=== PATIENT | male | born 1975 | race Caucasian/White ===

== ENCOUNTER 2018-04-20 08:48 | Emergency (ER) | payer BC ==
[~2018-04-20] VITALS: Ht 193 cm; Wt 106.6 kg
--- NOTE | 2018-04-20 08:52 | NUR ---
PT A/OX4, BIB [facility] C/C SYNCOPAL EPISODE. PER PARAMEDICS, PT EXPERIENCED SYNCOPAL EPISODE X2 AT THE [facility] OFFICE WHILE IN SITTING POSITION AND X1 IN THE RA, EACH EPISODE LASTED "A FEW SECONDS". VSS. PT IS A/OX4, DENIES ANY COMPLAINTS AT THIS TIME. PT DOES NOT APPEAR TO BE IN ANY APPARENT DISTRESS. 18G IV ACCESS IN L HAND IS ESTABLISHED BY [facility] CNC CUTTING OPERATOR. ER MD AT BEDSIDE FOR MSE.
[2018-04-20] MEDS ORDERED: IV NORMAL SALINE 1000 ML BAG IV ONE (09:15)
[2018-04-20 09:40] LABS: BASOPHILS % (AUTO) 0.6 % (0.0-2.0); EOSINOPHILS # (AUTO) 0.1 K/uL (0.0-0.7); EOSINOPHILS % (AUTO) 1.3 % (0.0-7.0); HEMOGLOBIN 13.6 g/dL (12.5-16.3); LYMPHOCYTES # (AUTO) 2.7 K/uL (20.0-40.0); LYMPHOCYTES % (AUTO) 43.9 % (20.5-51.5); MEAN CORPUSCULAR HEMOGLOBIN 33.6 uug (23.8-33.4); MEAN CORPUSCULAR HGB CONC 35 g/dL (32.5-36.3); MEAN CORPUSCULAR VOLUME 96.7 fL (73.0-96.2); MONOCYTES # (AUTO) 0.5 K/uL (2.0-10.0); NEUTROPHILS # (AUTO) 2.7 K/uL (1.8-8.9); NEUTROPHILS % (AUTO) 45.2 % (38.5-71.5); PLATELET COUNT (AUTO) 201 K/uL (152-348); RED BLOOD CELL COUNT(AUTO) 4.03 MIL/uL (4.06-5.63)
[2018-04-20 09:47] LABS: POTASSIUM 4.2 mmol/L (3.5-5.1)
[2018-04-20 09:53] LABS: BILIRUBIN,DIRECT 0.1 mg/dL (0.0-0.2); BILIRUBIN,TOTAL 0.5 mg/dL (0.2-1.0); TOTAL PROTEIN, SERUM 6.7 g/dL (6.4-8.2)
[2018-04-20 10:12] VITALS: BP 122/76
--- NOTE | 2018-04-20 10:12 | NUR ---
Patient discharged to home in stable conditon. Written and verbal after care instructions given. Patient verbalizes understanding of instructions. ALL BELONGINGS W/ PT. PT SELF-AMBULATED W/O DIFFICULTY. 18G IV ACCESS IN L WRIST AND 20G IN R FOREARM REMOVED PRIOR TO D/C - INNER CANNULAS INTACT.
== END 2018-04-20 10:10 | disposition home or self-care (01) ==
LOC: ER 08:48
DX: R55 Syncope and collapse (principal); F45.9 Somatoform disorder, unspecified
CPT/HCPCS: 36415; 70030-TC; 71045; 85025; 85730; 93005; A4663; J7030